=== PATIENT | male | born 1980 | race Caucasian/White ===

== ENCOUNTER 2017-02-17 17:04 | Emergency (ER) | payer SELFPAY ==
[~2017-02-17] VITALS: Ht 172.7 cm; Wt 88.0 kg
[~2017-02-17 17:04] MED LIST: DOXYCYCL HYC100 M3 PO; EPITOL200 MG OR; KEFLEX500 MG OR; LORTAB 5 OR; NEURONTIN300 MG PO; NEURONTIN600 MG OR; NO; REMERON30 MG OR; ULTRAM50 M1 PO; no home meds
[2017-02-17] MEDS ORDERED: AMOXICILLIN500 MG PO (18:16)
[2017-02-17] MEDS ORDERED: ULTRAM50 M1 PO (18:16)
[2017-02-17 18:27] VITALS: BP 183/120
[2017-02-18] MEDS ORDERED: LISINOPRIL10 MG PO (14:24)
== END 2017-02-17 18:35 | disposition home or self-care (01) | DRG 605 ==
LOC: ED 17:04
PROC: 0HQGXZZ Repair Left Hand Skin, External Approach (ICD-10-PCS; principal; 2017-02-17)
DX: S61.412A Laceration without foreign body of left hand, initial encounter (principal); I10 Essential (primary) hypertension; F17.210 Nicotine dependence, cigarettes, uncomplicated; W26.0XXA Contact with knife, initial encounter; Y93.89 Activity, other specified; Y92.009 Unspecified place in unspecified non-institutional (private) residence as the place of occurrence of the external cause

== ENCOUNTER 2017-02-18 14:14 | Emergency (ER) | payer SELFPAY ==
[~2017-02-18] VITALS: Ht 172.7 cm; Wt 95.0 kg
[~2017-02-18 14:14] MED LIST changes: +AMOXICILLIN500 MG PO
[2017-02-18] MEDS ORDERED: LISINOPRIL10 MG PO (14:24)
[2017-02-18 14:35] VITALS: BP 140/87
== END 2017-02-18 14:35 | disposition home or self-care (01) | DRG 950 ==
LOC: ED 14:14
DX: S61.412D Laceration without foreign body of left hand, subsequent encounter (principal); I10 Essential (primary) hypertension; W26.0XXD Contact with knife, subsequent encounter; F32.9 Major depressive disorder, single episode, unspecified; F17.210 Nicotine dependence, cigarettes, uncomplicated

== ENCOUNTER 2017-02-25 08:04 | Emergency (ER) | payer SELFPAY ==
[~2017-02-25] VITALS: Ht 172.7 cm; Wt 90.0 kg
[~2017-02-25 08:04] MED LIST changes: +LISINOPRIL10 MG PO
[2017-02-25] MEDS ORDERED: BACTRIM DS1 TAB PO (08:44)
[2017-02-25 08:51] VITALS: BP 144/85
[2017-02-25] MEDS ORDERED: CLINDAMYCIN300 M1 PO (08:58)
== END 2017-02-25 09:00 | disposition home or self-care (01) | DRG 603 ==
LOC: ED 08:04
PROC: 0H9GXZZ Drainage of Left Hand Skin, External Approach (ICD-10-PCS; principal; 2017-02-25)
DX: L08.9 Local infection of the skin and subcutaneous tissue, unspecified (principal); I10 Essential (primary) hypertension; F32.9 Major depressive disorder, single episode, unspecified; F17.210 Nicotine dependence, cigarettes, uncomplicated; S61.412D Laceration without foreign body of left hand, subsequent encounter; X58.XXXD Exposure to other specified factors, subsequent encounter

== ENCOUNTER 2017-03-23 07:12 | Inpatient (IN) | payer SELFPAY ==
[2017-03-23] VITALS (10 sets, daily range): BP systolic 86–145; BP diastolic 48–76
[~2017-03-23] VITALS: Ht 172.7 cm; Wt 90.2 kg
[~2017-03-23 07:12] MED LIST changes: +BACTRIM DS1 TAB PO; +CLINDAMYCIN300 M1 PO
[2017-03-23 08:16] LABS: HEMOGLOBIN 17.6 g/dl (14.0-18.0); IMMATURE GRANULOCYTES 0.3 % (0.0-1.0); MEAN CELL VOLUME 86.4 fL CALC (80.0-100.0); MEAN CORPUSCULAR HGB CONC 35.9 g/L CALC (32.0-36.0); NEUT# 9.41 thou/uL (1.82-7.42); RED BLOOD COUNT 5.67 mill/uL (4.70-6.10); RED CELL DISTRI WIDTH 13.1 % (11.5-15.5)
[2017-03-23 08:32] LABS: ALBUMIN 4.9 g/dL (3.2-5.0); BILIRUBIN, TOTAL 0.9 mg/dL (0.0-1.4); CALCIUM 10.1 mg/dL (8.4-10.2); POTASSIUM 3.6 mmol/l (3.5-5.1)
[2017-03-23 08:40] LABS: CREATININE 8.3 mg/dL (0.7-1.3)
[2017-03-23 17:59] LABS: URINE BILIRUBIN - DIPSTICK NEGATIVE (NEGATIVE); URINE BLOOD DIPSTICK SMALL (NEGATIVE); URINE CLARITY CLEAR; URINE COLOR YELLOW; URINE GLUCOSE - DIPSTICK NEGATIVE (NEGATIVE); URINE KETONE NEGATIVE (NEGATIVE); URINE LEUK ESTERASE NEGATIVE (NEGATIVE); URINE NITRITE - DIPSTICK NEGATIVE (Negative); URINE PROTEIN - DIPSTICK TRACE mg/dL (NEG-TRACE); URINE UROBILINOGEN - DIPSTICK 0.2 E.U./dL (0.2)
[2017-03-23 18:05] LABS: BARBITURATES NEGATIVE (NEGATIVE); COCAINE NEGATIVE (NEGATIVE); METHADONE NEGATIVE (NEGATIVE); OXCYCODONE NEGATIVE (NEGATIVE); TETRAHYDROCANNABIONOL NEGATIVE (NEGATIVE); TRICYLIC ANTIDEPRESSANTS NEGATIVE (NEGATIVE)
[2017-03-23 18:26] LABS: POTASSIUM 3.2 mmol/l (3.5-5.1)
[2017-03-23 18:29] LABS: CALCIUM 7.8 mg/dL (8.4-10.2)
[2017-03-23 18:35] LABS: URINE SQUAMOUS EPITHELIAL CELL FEW EPI/hpf (0-FEW)
[2017-03-24] VITALS (11 sets, daily range): BP systolic 113–151; BP diastolic 65–93
[2017-03-24 04:38] LABS: HEMOGLOBIN 14.4 g/dl (14.0-18.0); IMMATURE GRANULOCYTES 0.4 % (0.0-1.0); MEAN CELL VOLUME 89.4 fL CALC (80.0-100.0); MEAN CORPUSCULAR HGB 30.6 pG CALC (26.0-32.0); MEAN CORPUSCULAR HGB CONC 34.3 g/L CALC (32.0-36.0); NEUT# 4.79 thou/uL (1.82-7.42); RED BLOOD COUNT 4.7 mill/uL (4.70-6.10); RED CELL DISTRI WIDTH 13.1 % (11.5-15.5)
[2017-03-24 04:52] LABS: ALBUMIN 3.5 g/dL (3.2-5.0); CALCIUM 8.4 mg/dL (8.4-10.2); CREATININE 2.7 mg/dL (0.7-1.3)
[2017-03-25 04:54] VITALS: BP 143/92
[2017-03-25 05:55] LABS: ANION GAP 12 (6-22 (CALC)); BUN 13 mg/dL (9-20); BUN/CREATININE RATIO 11 (12-20 (CALC)); CALCIUM 8.6 mg/dL (8.4-10.2); CARBON DIOXIDE 26 mmol/l (22-30); CHLORIDE 104 mmol/l (95-108); CREATININE 1.2 mg/dL (0.7-1.3); GFR > 60 ML/MIN (>=60 (CALC)); GFR FOR AFR.AMER. > 60 ML/MIN (>=60 (CALC)); GLUCOSE 85 mg/dL (75-110); POTASSIUM 4.1 mmol/l (3.5-5.1); SODIUM 138 mmol/l (137-146)
[2017-03-25 08:35] VITALS: BP 151/90
== END 2017-03-25 11:30 | disposition home or self-care (01) | DRG 683 ==
LOC: ENPENDDIS → ED 07:12 → ED-I 08:38 → ED 08:57 → ICU 08:58 → MS2 03-24 14:29
PROVIDERS: Emergency Medicine; ADMIT Internal Medicine; ATTEND Internal Medicine
PROC: 0T9B70Z Drainage of Bladder with Drainage Device, Via Natural or Artificial Opening (ICD-10-PCS; principal; 2017-03-23)
DX: N17.9 Acute kidney failure, unspecified (principal); E87.3 Alkalosis; E87.8 Other disorders of electrolyte and fluid balance, not elsewhere classified; E87.1 Hypo-osmolality and hyponatremia; I10 Essential (primary) hypertension; F17.210 Nicotine dependence, cigarettes, uncomplicated; E86.0 Dehydration; F10.10 Alcohol abuse, uncomplicated; E87.6 Hypokalemia; F12.90 Cannabis use, unspecified, uncomplicated; R33.9 Retention of urine, unspecified; F15.10 Other stimulant abuse, uncomplicated; F11.10 Opioid abuse, uncomplicated; F13.10 Sedative, hypnotic or anxiolytic abuse, uncomplicated
CPT/HCPCS: J2060

== ENCOUNTER 2019-02-04 21:51 | Emergency (ER) | payer SELFPAY ==
[~2019-02-04] VITALS: Ht 172.7 cm; Wt 91.0 kg
[2019-02-04] MEDS ORDERED: KEFLEX500 M1 PO (22:39)
[2019-02-04 22:50] VITALS: BP 136/90
== END 2019-02-04 22:52 | disposition home or self-care (01) | DRG 605 ==
LOC: ED 21:51
DX: S61.211A Laceration without foreign body of left index finger without damage to nail, initial encounter (principal); F17.210 Nicotine dependence, cigarettes, uncomplicated; W29.3XXA Contact with powered garden and outdoor hand tools and machinery, initial encounter; Y93.H2 Activity, gardening and landscaping; Y92.007 Garden or yard of unspecified non-institutional (private) residence as the place of occurrence of the external cause

== ENCOUNTER 2023-01-09 20:42 | Observation (INO) | payer SELFPAY ==
[~2023-01-09] VITALS: Ht 172.7 cm; Wt 86.6 kg
[~2023-01-09 20:42] MED LIST changes: +KEFLEX500 M1 PO
[2023-01-09 21:15] VITALS: BP 129/92
[2023-01-09 22:18] LABS: BASO% 0.2 % (0-3); EOS% 0.3 % (0-8); IMMATURE GRANULOCYTES 0.2 % (0.0-5.0); LYMPH% 13.5 % (15-41); MEAN CELL VOLUME 85.2 fL CALC (80.0-100.0); MEAN CORPUSCULAR HGB 29.7 pG CALC (26.0-32.0); MEAN CORPUSCULAR HGB CONC 34.8 g/dL CAL (32.0-36.0); MONO% 5.6 % (2-13); NEUT# 13.78 thou/uL (1.82-7.42); NEUT% 80.2 % (42-76); RED BLOOD COUNT 5.8 mill/uL (4.70-6.10); RED CELL DISTRI WIDTH 12.5 % (11.5-15.5)
[2023-01-09 22:23] LABS: HEMATOCRIT 49.4 % (39.0-50.0); HEMOGLOBIN 17.2 g/dl (14.0-18.0)
[2023-01-09 22:43] LABS: ALBUMIN 5.1 g/dL (3.2-5.0); BILIRUBIN, TOTAL 0.9 mg/dL (0.2-1.3); POTASSIUM 4.2 mmol/l (3.5-5.1); TOTAL PROTEIN 8.9 g/dL (6.3-8.2)
[2023-01-10 01:23] VITALS: BP 134/102
[2023-01-10 01:24] VITALS: BP 157/91
[2023-01-10 04:02] VITALS: BP 121/81
[2023-01-10 05:46] VITALS: BP 131/80
[2023-01-10 05:51] LABS: POTASSIUM 3.7 mmol/l (3.5-5.1)
[2023-01-10 08:18] VITALS: BP 121/83
[2023-01-10] MEDS ORDERED: AMLODIPINE BESYL5 MG PO (09:53)
[2023-01-10] MEDS ORDERED: LIBRIUM25 MG PO (09:54)
== END 2023-01-10 12:22 | disposition home or self-care (01) | DRG 683 ==
LOC: ED 20:42 → ED-I 01-10 01:49 → ED 01-10 02:09 → MS2 01-10 02:10
PROVIDERS: Emergency Medicine; ADMIT Internal Medicine; ATTEND Internal Medicine
DX: N17.9 Acute kidney failure, unspecified (principal); E87.3 Alkalosis; E86.0 Dehydration; R11.2 Nausea with vomiting, unspecified; I10 Essential (primary) hypertension; F10.10 Alcohol abuse, uncomplicated; F17.200 Nicotine dependence, unspecified, uncomplicated
CPT/HCPCS: G0378

== ENCOUNTER 2023-10-14 07:58 | Emergency (ER) | payer SELFPAY ==
[2023-10-14] VITALS (8 sets, daily range): BP systolic 132–152; BP diastolic 99–113
[~2023-10-14] VITALS: Ht 172.7 cm; Wt 88.0 kg
[~2023-10-14 07:58] MED LIST changes: +AMLODIPINE BESYL5 MG PO; +LIBRIUM25 MG PO; +SPORANOX100 MG PO
[2023-10-14] MEDS ORDERED: Diph, Acellular Pertussis, Tet 0.5 ML/VIAL (Tdap) SDV IM ONE (08:50)
[2023-10-14] MEDS ORDERED: BACTRIM DS1 TAB PO (09:40)
[2023-10-14] MEDS ORDERED: CIPROFLOXACN500 MG PO (09:40)
== END 2023-10-14 10:26 | disposition home or self-care (01) | DRG 605 ==
LOC: ED 07:58
DX: S91.332A Puncture wound without foreign body, left foot, initial encounter (principal); I10 Essential (primary) hypertension; F17.220 Nicotine dependence, chewing tobacco, uncomplicated; W45.0XXA Nail entering through skin, initial encounter; Y92.009 Unspecified place in unspecified non-institutional (private) residence as the place of occurrence of the external cause